=== PATIENT | female | born 1935 | race Caucasian/White ===

== ENCOUNTER → 2016-05-04 | Emergency (ER) | payer MEDICARE, OTHER ==
[~2016-05-04] MED LIST: *UNABLE1; APRES25 PO; APRES50 PO; ASAB PO; AT25 PO; B121000P IM; C25 PO; C5 PO; CAT1 PO; COREG12 PO; COREG3 PO; COREG6 PO; COUMADIN7.5 MG PO; COZ25 PO; COZ50 PO; CYMBALTA60 PO; DIOV160 PO; DYAZIDE PO; EXELON3 PO; FERROUS SULF324 MG PO; FISH-EPA1000 MG PO; GLUCOPHAGE1000 MG PO; HEMOCYTE324 MG PO; HYDRALAZINE100 MG PO; HYZAAR1 TAB PO; I-CAPS PO; K-TABS10 MEQ PO; K500 PO; KDUR20 PO; KEPPRA500 PO; KLOR-CON 1010 MEQ PO; KLOR-CON M2020 MEQ PO; LANTUS SC; LANTUSCART SC; LIPITOR20 PO; LIPITOR40 PO; LORTAB 5 PO; LORTAB10 PO; LOVENOX1C SC; MICRO-K10 MEQ PO; NAMENDA10 MG PO; NAMENDA5 PO; NEUR600 PO; NEUR800 PO; NEXIUM40 PO; NORCO1 TAB PO; NYS500UDL PO; PLAVIX PO; PRESERVISION A1 EAC1 PO; PRILOSEC40 MG PO; PROTONIX PO; PT. UNABLE TO RECALL; RESTORIL30 MG PO; SANCTURA XR60 MG PO; THERA-M PO; THERGRANM PO; TOVIAZ8 MG PO; TRAZ50 PO; ULTRAM50 PO; VESICARE10 MG PO; VITAMIN D31000 UNIT PO; VITC500 PO; X5 PO; XARELTO15 MG PO
[2016-05-04 10:39] LABS: BASOPHILS 0.2 %; BASOPHILS ABSOLUTE 0.02 10/3/uL (0.0-0.16); EOSINOPHILS 1.9 %; EOSINOPHILS ABSOLUTE 0.16 10/3/uL (0.0-0.53); HEMATOCRIT 37.4 % (36.0-48.0); HEMOGLOBIN 12.2 g/dL (12.0-16.0); IMMATURE GRANULOCYTES 0.1 %; IMMATURE GRANULOCYTES ABSOLUTE 0.01 10/3/uL (0.0-0.11); LYMPHOCYTES 32.9 %; LYMPHOCYTES ABSOLUTE 2.74 10/3/uL (0.67-4.30); MEAN CORPUS HGB CONC 32.6 g/dL (32.0-36.0); MEAN CORPUSCULAR HEMOGLOB 27.8 pg (26.0-34.0); MEAN PLATELET VOLUME 11.1 fL (9.2-13.0); MONOCYTES 8.8 %; MONOCYTES ABSOLUTE 0.73 10/3/uL (0.21-1.20); NEUTROPHILS 56.1 %; NEUTROPHILS ABSOLUTE 4.68 10/3/uL (2.02-8.40); PLATELET COUNT 195 10/3/uL (150-400); RBC DISTRIBUTION WIDTH 13.7 % (12.0-16.0); RED CELL COUNT 4.39 10/6/uL (4.0-5.6); WHITE BLOOD CELLS 8.3 10/3/uL (4.5-10.5)
[2016-05-04 10:41] LABS: MANUAL DIFF NO %; MEAN CORPUSCULAR VOLUME 85.2 fL (80-100)
[2016-05-04 10:48] LABS: INTERNATIONAL NORMAL RATI 1.2 UNITS (-); PARTIAL THROMBO TIME 30.7 SEC (22.5-37.2); PROTIME (NOT ORD) 15.2 SEC (12.0-14.5)
[2016-05-04 10:50] LABS: BUN (BLOOD UREA NITROGEN) 13 MG/DL (6-23); CALCIUM, SERUM 8.6 MG/DL (8.5-10.4); CHLORIDE, SERUM 105 MMOL/L (96-112); CO2 (CARBON DIOXIDE) 28 MMOL/L (24-34); CREATININE 0.77 MG/DL (0.55-1.02); GFR AFRICAN AMERICAN 84 ML/MIN (>=60); GFR NON AFRICAN AMERICAN 72 ML/MIN (>=60); GLUCOSE, SERUM 155 MG/DL (60-99); POTASSIUM, SERUM 4.4 MMOL/L (3.5-5.3); SODIUM, SERUM 142 MMOL/L (135-148)
== END | disposition home or self-care (01) ==
LOC: ER 10:16
PROVIDERS: Hospitalist
DX: R07.89 Other chest pain (principal); I48.91 Unspecified atrial fibrillation; I10 Essential (primary) hypertension; I25.10 Atherosclerotic heart disease of native coronary artery without angina pectoris; Z95.1 Presence of aortocoronary bypass graft; Z95.5 Presence of coronary angioplasty implant and graft; E11.9 Type 2 diabetes mellitus without complications; Z86.73 Personal history of transient ischemic attack (TIA), and cerebral infarction without residual deficits
CPT/HCPCS: 71275; 80048; 83690; 85025; 85610; 85730; 93005; 99285; A9270-GY; Q9967

== ENCOUNTER 2016-08-25 18:40 | Inpatient (IN) | payer MEDICARE, OTHER ==
--- NOTE | ~2016-08-25 | PRECARD ---
H&P [facility] [address] [place]. [address] NAME: THERESA CALVIN : 34 STATUS : ADM Uziel PAT#: [id number] AGE: 80 ADM/REG DATE : 08/25/16 MR#: [id number] REPORT SERV DATE: 08/26/16 DICTATED BY: JOHNATHON VICTORIA DATE: 08/26/16 REPORT STATUS : Draft TRANSCRIBED BY: MODL DATE: 08/26/16 DATE OF ADMISSION: 08/25/2016 REASON FOR ADMISSION: Syncope and second-degree AV block. HISTORY OF PRESENT ILLNESS: Ms. Calvin is an 80-year-old female, who is transferred from [facility] after an episode of syncope. She was visiting her , who was hospitalized there. She began to have dizziness and lightheadedness with some abdominal pain/discomfort and nausea. When trying to ambulate with her rolling walker to the bathroom, she had a complete loss of consciousness, striking the back of her head. She had no chest pain, no shortness of breath, and she has had no lower extremity edema. There were no preceding palpitations. She was seen in the [facility] ER, where evaluation there showed an EKG that was automatically interpreted as atrial fibrillation, but on personal review, this is second-degree AV block type 1, Wenckebach. All other laboratory evaluation there was unremarkable, and she was transferred for further care. Overnight, she had sinus rhythm with Wenckebach, but ECG this morning shows sinus rhythm with second-degree AV block type 2. Her care is further complicated by a known history of paroxysmal atrial fibrillation, on adjusted dose of Xarelto with Plavix. She has a history of coronary bypass grafting and had an acute inferior myocardial infarction in April of this year, complicated by transient AV block that resolved after right coronary artery PCI. She is now resting comfortably and in no distress. REVIEW OF SYSTEMS: Pertinent positives and negatives are as outlined above, all else negative. PAST MEDICAL HISTORY: 1. CAD, status post acute inferior OR and subsequent PCI. 2. Status post coronary bypass grafting. 3. Hypertension. 4. Hyperlipidemia. 5. Diabetes mellitus type 2. 6. History of paroxysmal atrial fibrillation. 7. Adjusted dose of Xarelto for anticoagulation. CURRENT HOME MEDICATIONS: 1. Carvedilol 12.5 mg twice daily. 2. Xarelto 15 mg daily. 3. Plavix 75 mg daily. 4. Atorvastatin 20 mg daily. 5. Diovan 160 mg daily. 6. Vitamin D supplementation. 7. Cymbalta 60 mg daily. 8. Toviaz 8 mg daily. 9. Hydralazine 100 mg twice daily. 10.Neurontin as directed. 11.Hydrocodone as directed. H&P [address] [place]. [address] NAME: THERESA CALVIN : 34 STATUS : ADM Uziel PAT#: [id number] AGE: 80 ADM/REG DATE : 08/25/16 MR#: [id number] REPORT SERV DATE: 08/26/16 DICTATED BY: JOHNATHON VICTORIA DATE: 08/26/16 REPORT STATUS : Draft TRANSCRIBED BY: RUBY DATE: 08/26/16 12.Atarax as directed. 13.Glargine insulin as directed. 14.Namenda as directed. 15.Protonix 40 mg daily. 16.Potassium supplementation. 17.Exelon cap 3 mg twice daily. 18.Restoril p.r.n. 19.Vitamin C supplementation. ALLERGIES: INCLUDE TEGRETOL, WHICH CAUSES A RASH; ADHESIVE TAPE, WHICH CAUSES A RASH; AND ZONEGRAN WITH AN UNKNOWN REACTION. SOCIAL HISTORY: She does not use tobacco products, consume alcohol or illegal drugs. FAMILY HISTORY: Significant for CAD. PHYSICAL EXAMINATION: VITALS: Temperature is 98, pulse 60, respirations 16, blood pressure 160/70. GENERAL: Well-developed female, who is in no acute distress. HEENT: Sclerae anicteric. Mucous membranes moist and without lesions. Palpable small soft tissue hematoma over the occipital lobe. NECK: No jugular venous distention. No hepatojugular reflux. Carotid upstrokes 2+ and symmetric. There are no carotid or subclavian bruit. LUNGS: Clear to auscultation without wheezes, crackles, or rales. CARDIOVASCULAR: Irregular rhythm with S1 and S2. No audible S3. No audible murmurs. No parasternal lift. PMI is not palpable. ABDOMEN: Soft and nontender. Bowel sounds positive and normoactive. No hepatomegaly. No masses. No abdominal bruit. PULSES: Radial and dorsalis pedis pulses 2+ and symmetric. EXTREMITIES: Warm and without edema. SKIN: No clubbing or cyanosis. No rashes or lesions. ACCESSORY DATA: Creatinine of 0.7, BUN 10, other electrolytes normal, except magnesium low at 1.4. Hematocrit 35% with a platelet count of 214. IMPRESSION: 1. Syncope. 2. Second-degree atrioventricular block, type 1 and type 2. 3. Hypomagnesemia. 4. Coronary artery disease, status post myocardial infarction and CABG and PCI. 5. Hypertension. 6. Hyperlipidemia. 7. Diabetes mellitus type 2. 8. History of paroxysmal atrial fibrillation. 9. Anticoagulation with Xarelto. PLAN: Ms. Calvin had a syncopal episode with an initial vasovagal prodrome, but evaluation H&P [address] [address] NAME: THERESA CALVIN : 34 STATUS : ADM Uziel PAT#: [id number] AGE: 80 ADM/REG DATE : 08/25/16 MR#: [id number] REPORT SERV DATE: 08/26/16 DICTATED BY: JOHNATHON VICTORIA. DATE: 08/26/16 REPORT STATUS : Draft TRANSCRIBED BY: MODL DATE: 08/26/16 shows subsequent second-degree AV block, both type 1 and type 2. Her presentation ECGs were discussed with Dr. Calderon, who agreed that she will need permanent pacemaker placement. We will hold carvedilol and Xarelto. Blood pressure control with p.r.n. hydralazine and nitrates. We will prescribe electrolyte protocol for magnesium supplementation. She will have a noncontrast CT of the head for a syncopal episode and fall with soft tissue hematoma while on anticoagulation. She will be kept n.p.o. after midnight. CONSENT: Risks and benefits of permanent pacemaker placement were discussed with Ms. Calvin today. Risks including bleeding, infection, vascular access trauma, pneumothorax requiring chest tube placement, myocardial damage including pericardial effusion that may require drainage were all discussed. After this, informed consent was obtained and she agreed to proceed. AEA/RBUY Johnathon Victoria M.D. / [id number] CC: Johnathon Victoria M.D.
--- NOTE | ~2016-08-25 | CN ---
Consultation Report [facility] [address] [place]. [address] NAME: DARLENE CALVIN : 34 STATUS : ADM IN PAT#: [id number] AGE: 80 ADM/REG DATE : 08/26/16 MR#: [id number] REPORT SERV DATE: 08/27/16 DICTATED BY: YASMANI CALDERON DATE: 08/27/16 REPORT STATUS : Draft TRANSCRIBED BY: MODL DATE: 08/27/16 ELECTROPHYSIOLOGY CONSULTATION DATE OF CONSULTATION: 08/27/2016 INDICATIONS: AV block and syncope. PRIMARY BAGGAGE SCREENER: Dr. Jeremy Barragan. HISTORY OF PRESENT ILLNESS: Darlene Cavlin is an 80-year-old female who was apparently transferred to [facility] on 08/25/2016, with reported syncope and atrial fibrillation on arrival. ECG is actually consistent with AV block, appears to be a combination type 1 and type 2 AV block. She did receive her Xarelto that evening at about a little before 10:00 p.m. She has not had additional syncopal event. She has had bradycardia down to 40s with second-degree AV block. No complaints of chest pain or shortness of breath. She described the syncope as a completing sudden loss of consciousness where she fell backwards and struck her head. Head CT showed no acute abnormality. No orthopnea or PND. She has a recent UT and PCI and is on Xarelto 15 along with Plavix, this was in 04/2016. PAST MEDICAL HISTORY: Coronary artery disease, previous bypass grafting, previous UT and PCI, hypertension, diabetes, dyslipidemia, paroxysmal atrial fibrillation. HOME MEDICATIONS: Listed in [facility] home medicine form and reviewed. Notable for Coreg 12.5 mg, this has now been held, despite this the patient continues with second-degree AV block. ALLERGIES: SHE HAS SEVERAL ALLERGIES, LISTED IN [facility] MEDICINE FORM AND REVIEWED. SOCIAL HISTORY: No smoking. No alcohol. FAMILY HISTORY: Notable for CAD. REVIEW OF SYSTEMS: As per the HPI. Otherwise, all other review of systems negative. PHYSICAL EXAMINATION: VITAL SIGNS: Blood pressure of 157/68, pulse is 60, respiratory rate is 18. GENERAL: Appears stated age, no distress. EYES: Sclerae anicteric, no arcus senilis. MOUTH: Oral mucosa moist, lips acyanotic. NECK: Jugular venous pressure normal, no carotid bruits. LUNGS: Clear to auscultation bilaterally, normal inspiratory effort. CARDIAC: Regular rhythm with occasional "dropped beat." No murmurs, gallops or rubs. ABDOMEN: Soft, nondistended, nontender. Consultation Report [facility] [address] [place]. [address] NAME: DARLENE CALVIN : 34 STATUS : ADM IN PAT#: [id number] AGE: 80 ADM/REG DATE : 08/26/16 MR#: [id number] REPORT SERV DATE: 08/27/16 DICTATED BY: YASMANI CALDERON DATE: 08/27/16 REPORT STATUS : Draft TRANSCRIBED BY: RUBY DATE: 08/27/16 EXTREMITIES: No edema. SKIN: Warm and dry. NEURO/PSYCH: Alert and oriented, nonfocal, mood appropriate. Telemetry demonstrates sinus rhythm and frequent type 1 second-degree AV block. ECGs in chart demonstrate what appears to be a combination type 1 and type 2 AV block and questionably a higher grade of AV block as well. DATA: Sodium is 138, potassium 3.8, creatinine is 0.8. Hemoglobin is 11.6, platelets 226, white count 8.6. As stated before, ECG sinus rhythm with second-degree AV block, probable anterior UT and left axis deviation. IMPRESSION: 1. Syncope. 2. Documented second-degree AV block with heart rates down in the 40s, persistent despite holding off Coreg. 3. Coronary artery disease with preserved LV systolic function. Ejection fraction of 50% to 55% by echo, 04/2016. 4. Diabetes. 5. Paroxysmal atrial fibrillation, on Xarelto, last dosed in 04/2016 approximately 10:00 p.m. 6. Hypertension. RECOMMENDATIONS: Plan to proceed with implantation of a dual-chamber cardiac pacemaker. However, would defer the procedure from today to tomorrow given she has had Xarelto within the last 36 hours and is on concomitant Plavix. Discussed with the patient. All questions were answered. VICTOR M/RUBY Yasmani Calderon M.D. / [id number] CC: Michele Gallegoston, M.D.
--- NOTE | ~2016-08-25 | DS ---
Discharge Summary [facility] [address] [place]. [address] NAME: THERESA CALVIN : 34 STATUS : DIS IN PAT#: [id number] AGE: 80 ADM/REG DATE : 08/26/16 MR#: [id number] REPORT SERV DATE: 09/13/16 DICTATED BY: JOHNATHON VICTORIA DATE: 09/12/16 REPORT STATUS : Draft TRANSCRIBED BY: RUBY DATE: 09/12/16 Data Collection from hospitalization DISCHARGE DIAGNOSES: 1. Second-degree atrioventricular block. 2. Syncope. 3. Paroxysmal atrial fibrillation. 4. Coronary artery disease. 5. Hypertension. 6. Hypercholesterolemia. 7. Type 2 diabetes mellitus. 8. History of acute inferior myocardial infarction. CONSULTATION: Dr. Yasmani Calderon. PROCEDURES PERFORMED: 1. Pacemaker implantation, 08/28/2016. 2. CT scan of the brain without contrast, 08/26/2016. MEDICATIONS: Vitamin C 1000 mg daily, Lipitor 20 mg daily, Coreg 12.5 mg twice a day, Keflex 500 mg every six hours, vitamin D3 1000 units daily, Catapres 0.1 mg every evening, Plavix 75 mg daily, Cymbalta 60 mg daily, Toviaz 8 mg daily, Neurontin 800 mg three times a day, hydralazine 100 mg twice a day, Cromona 10/325 one tablet every eight hours as needed, Atarax 25 mg every eight hours as needed, Lantus injection insulin 68 units subcutaneously at bedtime, Namenda 10 mg twice a day, Protonix 40 mg daily, Klor-Con 20 mEq at bedtime, Xarelto 15 mg with supper, Exelon 3 mg twice a day, Restoril 30 mg at bedtime as needed, Ultram 50 mg every four hours as needed, Diovan 160 mg every morning, PreserVision one capsule daily. CONDITION AT DISCHARGE: Stable. DISPOSITION: The patient was discharged home on a low-sodium, low-cholesterol, 1800 calorie cardiac/diabetic diet with activities as instructed. She would follow up with Dr. Jeremy Barragan, 10/11/2016 and would follow up at the device clinic, 09/18/2016. HOSPITAL COURSE: This is an 80-year-old female, who was transferred from [facility] after an episode of syncope. She had been visiting her , who is hospitalized there. She began to have dizziness and lightheadedness with some abdominal pain, discomfort, and nausea. When trying to ambulate with a rolling walker to the bathroom, she had complete loss of consciousness and struck the back of her head. She had no chest pain or shortness of breath and had no lower extremity edema. There were no preceding palpitations. She was seen in the [facility] emergency room and evaluation there showed an EKG that was automatically interpreted as atrial fibrillation, but on personal review, this was second- degree AV block type 1 Wenckebach. Overnight, she had a sinus rhythm with Wenckebach, but ECG on the morning of this admission showed sinus rhythm with second-degree AV block type 2. Her care is further complicated by a known history of paroxysmal atrial fibrillation on an adjusted dose of Xarelto with Plavix. She has a history of coronary bypass grafting and had an acute inferior myocardial infarction in April of this year, complicated by transient Discharge Summary [address] [place]. [address] NAME: THERESA CALVIN : 34 STATUS : DIS IN PAT#: [id number] AGE: 80 ADM/REG DATE : 08/26/16 MR#: [id number] REPORT SERV DATE: 09/13/16 DICTATED BY: JOHNATHON VICTORIA DATE: 09/12/16 REPORT STATUS : Draft TRANSCRIBED BY: RUBY DATE: 09/12/16 AV block that resolved after right coronary artery percutaneous coronary intervention. She was resting comfortably at this time and was in no distress. She was admitted to the hospital for further evaluation and treatment. Upon admission, it was felt that she would need to proceed with permanent pacemaker placement. Carvedilol and Xarelto were held. Blood pressure would be controlled with hydralazine as needed and nitrate. Electrolyte protocol was going to begin for magnesium supplementation. A CT scan of the head was requested. She would be held n.p.o. after midnight. A CT scan of the brain without contrast showed no acute intracranial hemorrhage or other intracranial pathology. The following day, she was seen by Dr. Yasmani Calderon regarding AV block and syncope. She had no complaints of chest pain or shortness of breath. She had no orthopnea or PND. Telemetry demonstrated sinus rhythm and frequent type 1 second degree AV block. ECGs in the chart demonstrate what appeared to be a combination type 1 and type 2 AV block and questionably a higher grade of AV block as well. Plans were made to proceed with implantation of a dual-chamber cardiac pacemaker. He recommended that we defer the procedure from that day until the following day, given that she would receive Xarelto within the last 36 hours and was on concomitant Plavix. On the , she was taken to the cardiac clinical lab clerk, where she underwent the above-mentioned procedure by Dr. Carmelo Lee. She tolerated this well and there were no complications. The patient did complain of some back pain. Discharge planning was performed. On 08/29/2016, she had no chest pain. Blood pressure had increased off Coreg. Her lungs were clear bilaterally. The patient was in a normal sinus rhythm on telemetry. All device measurements were within normal limits. Discharge instructions were given. Due to her improved and stable condition, she was discharged home with the above-stated instructions. Information collected by: Cassia Fuller I submit the above information as my discharge summary. VALORIE/RUBY Johnathon Victoria M.D. / [id number] CC: Michele Gallegos M.D. Yasmani Calderon M.D.
[~2016-08-25 18:40] MED LIST changes: -AT25 PO; -CAT1 PO; -COREG12 PO; -DIOV160 PO; -HYDRALAZINE100 MG PO; -K500 PO; -PROTONIX PO; -ULTRAM50 PO; -VITAMIN D31000 UNIT PO; -VITC500 PO; -XARELTO15 MG PO
[2016-08-25] MEDS ORDERED: PLAVIX PO (19:43)
[2016-08-25] MEDS ORDERED: VITAMIN D31000 UNIT PO (19:43)
[2016-08-25] MEDS ORDERED: PRESERVISION A1 EAC1 PO (19:43)
[2016-08-25] MEDS ORDERED: VITC500 PO (19:44)
[2016-08-25] MEDS ORDERED: TOVIAZ8 MG PO (19:44)
[2016-08-25] MEDS ORDERED: LANTUS SC (19:45)
[2016-08-25] MEDS ORDERED: NEUR800 PO (19:45)
[2016-08-25] MEDS ORDERED: KLOR-CON 1010 MEQ PO (19:46)
[2016-08-25] MEDS ORDERED: COREG12 PO (19:47)
[2016-08-25] MEDS ORDERED: CYMBALTA60 PO (19:48)
[2016-08-25] MEDS ORDERED: DIOV160 PO (19:48)
[2016-08-25] MEDS ORDERED: HYDRALAZINE100 MG PO (19:48)
[2016-08-25] MEDS ORDERED: XARELTO15 MG PO (19:49)
[2016-08-25] MEDS ORDERED: AT25 PO (19:54)
[2016-08-25] MEDS ORDERED: NAMENDA10 MG PO (19:55)
[2016-08-25] MEDS ORDERED: CAT1 PO (19:55)
[2016-08-25] MEDS ORDERED: LIPITOR20 PO (19:56)
[2016-08-25] MEDS ORDERED: NORCO1 TAB PO (19:56)
[2016-08-25] MEDS ORDERED: PROTONIX PO (19:57)
[2016-08-25] MEDS ORDERED: RESTORIL30 MG PO (19:57)
[2016-08-25] MEDS ORDERED: EXELON3 PO (19:57)
[2016-08-26 04:44] LABS: BASOPHILS 0.2 %; BASOPHILS ABSOLUTE 0.02 10/3/uL (0.0-0.16); EOSINOPHILS ABSOLUTE 0.18 10/3/uL (0.0-0.53); HEMATOCRIT 35.4 % (36.0-48.0); HEMOGLOBIN 10.8 g/dL (12.0-16.0); IMMATURE GRANULOCYTES 0.1 %; IMMATURE GRANULOCYTES ABSOLUTE 0.01 10/3/uL (0.0-0.11); LYMPHOCYTES 28.9 %; LYMPHOCYTES ABSOLUTE 2.64 10/3/uL (0.67-4.30); MEAN PLATELET VOLUME 11.2 fL (9.2-13.0); MONOCYTES 12.9 %; MONOCYTES ABSOLUTE 1.18 10/3/uL (0.21-1.20); NEUTROPHILS 55.9 %; PLATELET COUNT 214 10/3/uL (150-400); RBC DISTRIBUTION WIDTH 14.8 % (12.0-16.0); RED CELL COUNT 4.52 10/6/uL (4.0-5.6); WHITE BLOOD CELLS 9.1 10/3/uL (4.5-10.5)
[2016-08-26 04:45] LABS: MANUAL DIFF NO %; MEAN CORPUS HGB CONC 30.5 g/dL (32.0-36.0); MEAN CORPUSCULAR HEMOGLOB 23.9 pg (26.0-34.0); MEAN CORPUSCULAR VOLUME 78.3 fL (80-100)
[2016-08-26 04:56] LABS: A/G RATIO 0.9 (0.7-1.9); ALBUMIN 3.2 G/DL (3.5-5.0); ALKALINE PHOSPHATASE 87 U/L (45-117); BUN (BLOOD UREA NITROGEN) 10 MG/DL (6-23); CALCIUM, SERUM 8.6 MG/DL (8.5-10.4); CHLORIDE, SERUM 106 MMOL/L (96-112); CO2 (CARBON DIOXIDE) 31 MMOL/L (24-34); CREATININE 0.76 MG/DL (0.55-1.02); GFR AFRICAN AMERICAN 85 ML/MIN (>=60); GFR NON AFRICAN AMERICAN 74 ML/MIN (>=60); GLOBULIN 3.4 G/DL (2.5-4.1); GLUCOSE, SERUM 186 MG/DL (60-99); POTASSIUM, SERUM 4.1 MMOL/L (3.5-5.3); SGOT(AST) 12 U/L (5-40); SGPT(ALT) 18 U/L (5-65); SODIUM, SERUM 143 MMOL/L (135-148); TOTAL BILIRUBIN 0.4 MG/DL (0-1.2); TOTAL PROTEIN 6.6 G/DL (6.0-8.5)
[2016-08-27 05:36] LABS: BASOPHILS 0.3 %; BASOPHILS ABSOLUTE 0.03 10/3/uL (0.0-0.16); EOSINOPHILS 2.4 %; EOSINOPHILS ABSOLUTE 0.21 10/3/uL (0.0-0.53); HEMATOCRIT 37.2 % (36.0-48.0); HEMOGLOBIN 11.6 g/dL (12.0-16.0); IMMATURE GRANULOCYTES 0.1 %; IMMATURE GRANULOCYTES ABSOLUTE 0.01 10/3/uL (0.0-0.11); LYMPHOCYTES 34.9 %; MEAN CORPUS HGB CONC 31.2 g/dL (32.0-36.0); MEAN CORPUSCULAR HEMOGLOB 24.3 pg (26.0-34.0); MEAN PLATELET VOLUME 11.2 fL (9.2-13.0); MONOCYTES 13.1 %; MONOCYTES ABSOLUTE 1.13 10/3/uL (0.21-1.20); NEUTROPHILS 49.2 %; NEUTROPHILS ABSOLUTE 4.22 10/3/uL (2.02-8.40); PLATELET COUNT 226 10/3/uL (150-400); RBC DISTRIBUTION WIDTH 14.7 % (12.0-16.0); RED CELL COUNT 4.77 10/6/uL (4.0-5.6); WHITE BLOOD CELLS 8.6 10/3/uL (4.5-10.5)
[2016-08-27 05:41] LABS: INTERNATIONAL NORMAL RATI 1.1 UNITS (-); PROTIME (NOT ORD) 13.8 SEC (12.0-14.5)
[2016-08-27 05:45] LABS: MANUAL DIFF NO %
[2016-08-27 05:51] LABS: BUN (BLOOD UREA NITROGEN) 12 MG/DL (6-23); CALCIUM, SERUM 9.3 MG/DL (8.5-10.4); CHLORIDE, SERUM 103 MMOL/L (96-112); CO2 (CARBON DIOXIDE) 27 MMOL/L (24-34); CREATININE 0.82 MG/DL (0.55-1.02); GFR AFRICAN AMERICAN 78 ML/MIN (>=60); GFR NON AFRICAN AMERICAN 67 ML/MIN (>=60); GLUCOSE, SERUM 200 MG/DL (60-99); POTASSIUM, SERUM 3.8 MMOL/L (3.5-5.3); SODIUM, SERUM 138 MMOL/L (135-148)
[2016-08-28 06:07] LABS: BASOPHILS 0.3 %; BASOPHILS ABSOLUTE 0.03 10/3/uL (0.0-0.16); EOSINOPHILS 1.4 %; EOSINOPHILS ABSOLUTE 0.14 10/3/uL (0.0-0.53); HEMATOCRIT 38.2 % (36.0-48.0); IMMATURE GRANULOCYTES 0.2 %; IMMATURE GRANULOCYTES ABSOLUTE 0.02 10/3/uL (0.0-0.11); LYMPHOCYTES 31.7 %; MEAN CORPUS HGB CONC 31.4 g/dL (32.0-36.0); MEAN CORPUSCULAR HEMOGLOB 24.2 pg (26.0-34.0); MEAN CORPUSCULAR VOLUME 77.2 fL (80-100); MONOCYTES 11.3 %; MONOCYTES ABSOLUTE 1.14 10/3/uL (0.21-1.20); NEUTROPHILS 55.1 %; NEUTROPHILS ABSOLUTE 5.56 10/3/uL (2.02-8.40); PLATELET COUNT 218 10/3/uL (150-400); RBC DISTRIBUTION WIDTH 14.8 % (12.0-16.0); RED CELL COUNT 4.95 10/6/uL (4.0-5.6); WHITE BLOOD CELLS 10.1 10/3/uL (4.5-10.5)
[2016-08-28 06:10] LABS: MANUAL DIFF NO %
[2016-08-28 06:17] LABS: BUN (BLOOD UREA NITROGEN) 15 MG/DL (6-23); CALCIUM, SERUM 9.1 MG/DL (8.5-10.4); CHLORIDE, SERUM 104 MMOL/L (96-112); CO2 (CARBON DIOXIDE) 28 MMOL/L (24-34); CREATININE 0.72 MG/DL (0.55-1.02); GFR AFRICAN AMERICAN 91 ML/MIN (>=60); GFR NON AFRICAN AMERICAN 79 ML/MIN (>=60); GLUCOSE, SERUM 161 MG/DL (60-99); POTASSIUM, SERUM 3.9 MMOL/L (3.5-5.3); SODIUM, SERUM 142 MMOL/L (135-148)
[2016-08-29] MEDS ORDERED: K500 PO (09:40)
[2016-08-29] MEDS ORDERED: ULTRAM50 PO (09:41)
== END 2016-08-29 14:01 | disposition home or self-care (01) | DRG 243 ==
LOC: CDU2 18:40 → 6NO 08-28 16:54
PROVIDERS: Internal Medicine Cardiovascular Disease
PROC: 0JH606Z Insertion of Pacemaker, Dual Chamber into Chest Subcutaneous Tissue and Fascia, Open Approach (ICD-10-PCS; principal; 2016-08-28)
PROC: 02HK3JZ Insertion of Pacemaker Lead into Right Ventricle, Percutaneous Approach (ICD-10-PCS; 2016-08-28)
PROC: 02H63JZ Insertion of Pacemaker Lead into Right Atrium, Percutaneous Approach (ICD-10-PCS; 2016-08-28)
DX: I44.1 Atrioventricular block, second degree (principal); L03.115 Cellulitis of right lower limb; E11.9 Type 2 diabetes mellitus without complications; I10 Essential (primary) hypertension; I44.0 Atrioventricular block, first degree; I25.10 Atherosclerotic heart disease of native coronary artery without angina pectoris; I48.0 Paroxysmal atrial fibrillation; I25.2 Old myocardial infarction; W18.30XA Fall on same level, unspecified, initial encounter; E78.5 Hyperlipidemia, unspecified; Z95.5 Presence of coronary angioplasty implant and graft; Z79.01 Long term (current) use of anticoagulants; Z79.02 Long term (current) use of antithrombotics/antiplatelets; Z95.1 Presence of aortocoronary bypass graft
CPT/HCPCS: 33208; 70450; 71010; 80048; 80053; 82962; 83735; 85025; 85610; 93005; A9270-GY; C1785; C1892; C1898; J0360; J2370; J2405; J3010; J3370; J3475; Q9967

== ENCOUNTER 2016-08-31 13:57 | Emergency (ER) | payer MEDICARE, OTHER ==
[2016-08-31 12:20] LABS: BASOPHILS 0.4 %; BASOPHILS ABSOLUTE 0.04 10/3/uL (0.0-0.16); EOSINOPHILS 2.2 %; EOSINOPHILS ABSOLUTE 0.22 10/3/uL (0.0-0.53); ER CBC TAT 0 Hrs 03 Mins; HEMATOCRIT 37.4 % (36.0-48.0); HEMOGLOBIN 11.3 g/dL (12.0-16.0); IMMATURE GRANULOCYTES 0.1 %; IMMATURE GRANULOCYTES ABSOLUTE 0.01 10/3/uL (0.0-0.11); LYMPHOCYTES ABSOLUTE 2.54 10/3/uL (0.67-4.30); MEAN CORPUS HGB CONC 30.2 g/dL (32.0-36.0); MEAN CORPUSCULAR HEMOGLOB 23.5 pg (26.0-34.0); MEAN CORPUSCULAR VOLUME 77.8 fL (80-100); MEAN PLATELET VOLUME 10.8 fL (9.2-13.0); MONOCYTES 11.5 %; MONOCYTES ABSOLUTE 1.17 10/3/uL (0.21-1.20); NEUTROPHILS 60.8 %; PLATELET COUNT 199 10/3/uL (150-400); RBC DISTRIBUTION WIDTH 14.7 % (12.0-16.0); RED CELL COUNT 4.81 10/6/uL (4.0-5.6); WHITE BLOOD CELLS 10.2 10/3/uL (4.5-10.5)
[2016-08-31 12:23] LABS: MANUAL DIFF NO %
[2016-08-31 12:29] LABS: INTERNATIONAL NORMAL RATI 1.6 UNITS (-); PARTIAL THROMBO TIME 35.1 SEC (22.5-37.2)
[2016-08-31 12:30] LABS: PROTIME (NOT ORD) 18.8 SEC (12.0-14.5)
[2016-08-31 12:38] LABS: BUN (BLOOD UREA NITROGEN) 15 MG/DL (6-23); CALCIUM, SERUM 8.9 MG/DL (8.5-10.4); CHEST PAIN PROFILE TAT 0 Hrs 21 Mins; CHLORIDE, SERUM 103 MMOL/L (96-112); CO2 (CARBON DIOXIDE) 28 MMOL/L (24-34); CREATININE 0.79 MG/DL (0.55-1.02); GFR AFRICAN AMERICAN 81 ML/MIN (>=60); GFR NON AFRICAN AMERICAN 70 ML/MIN (>=60); SODIUM, SERUM 138 MMOL/L (135-148); TROPONIN I 0.03 NG/ML (<0.05)
[2016-08-31 12:42] LABS: GLUCOSE, SERUM 245 MG/DL (60-99); POTASSIUM, SERUM 4.7 MMOL/L (3.5-5.3)
[~2016-08-31 13:57] MED LIST changes: +AT25 PO; +CAT1 PO; +COREG12 PO; +DIOV160 PO; +HYDRALAZINE100 MG PO; +K500 PO; +PROTONIX PO; +ULTRAM50 PO; +VITAMIN D31000 UNIT PO; +VITC500 PO; +XARELTO15 MG PO
[2016-08-31 14:59] LABS: WBC (NOT ORDERED) (RFLEX) 0 (0-5)
[2016-08-31 15:11] LABS: ASCORBIC ACID (UR NOT ORDER) 40 (NEG); BILIRUBIN, URINE NEGATIVE (NEG); ER URINALYSIS TAT 0 Hrs 12 Mins; KETONE, URINE NEGATIVE (NEG); LEUKOCYTE ESTERASE(NOT OR NEG (NEG); NITRITE (URINE) NEG (NEG)
== END 2016-08-31 17:40 | disposition home or self-care (01) ==
LOC: ER 13:57
PROVIDERS: Emergency Medicine
DX: R53.83 Other fatigue (principal); T50.995A Adverse effect of other drugs, medicaments and biological substances, initial encounter; I48.91 Unspecified atrial fibrillation; I10 Essential (primary) hypertension; Z86.73 Personal history of transient ischemic attack (TIA), and cerebral infarction without residual deficits; E11.9 Type 2 diabetes mellitus without complications; Z95.0 Presence of cardiac pacemaker; Z88.8 Allergy status to other drugs, medicaments and biological substances; Z79.899 Other long term (current) drug therapy; Z79.4 Long term (current) use of insulin
CPT/HCPCS: 71010; 80048; 81001; 83735; 84484; 85025; 85610; 85730; 93005; 96372; 96374; 99285; A9270-GY